=== PATIENT | female | born 1945 | race Caucasian/White ===

== ENCOUNTER 2016-08-21 05:55 | Inpatient (IN) | payer MEDICARE, OTHER ==
--- NOTE | ~2016-08-21 | CR151 ---
[facility] A Service of [facility] RADIOLOGY TEXT RESULTS PATIENT: MICHAEL SHAVER LOCATION: [facility] 305- : 43 UNIT #: [id number] AGE: [address]: Latosha Greene MD SEX: F ORDER DR: [id number] [facility] [address] [facility]. [place], [place] [address] [id number] I MR#: [id number] Acc #: [id number] NAME: MICHAEL SHAVER : 1945 SEX: F STUDY DATE/TIME: 08/21/2016 6:36 UNIT: [facility] ROOM: [facility] STUDY DESCRIPTION: CR Hip Min 2 Views Rt Attending Physician: Latosha Greene M.D. Ordering Physician: Kirt Mclain M.D. Primary Care Physician: Migue Adams M.D. MEDICAL IMAGING REPORT This report is preliminary unless electronic signature is present EXAM Pelvis and right hip 08/21 INDICATIONS Hip pain after fall last night at 09:00 p.m. FINDINGS AP pelvis was obtained in addition to a cross-table lateral view of the right hip. No comparison. Patient is osteopenic. There is a right femoral neck fracture with coxa vera. No dislocation is seen. There is osteoarthritis in both hips and there is osteopenia. 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 IMPRESSION Osteopenia and osteoarthritis. Acute right femoral neck fracture with coxa vera. No dislocation. Dictated by... Abraham Alexander Jr., M.D. THIS IS AN ELECTRONICALLY VERIFIED REPORT Abraham Alexander Jr., M.D. at 08/21/2016 10:00 AM KRISTI/rudolph TD: 08/21/2016 08:36 JOB #: [id number] MEDICAL IMAGING REPORT Page 1 of 1 COPY
--- NOTE | ~2016-08-21 | DS ---
Unit #: [id number] #: [id number] Patient: MICHAEL UGARTE [id number] [address] [address] [id number] I MR#: [id number] NAME: MICHAEL UGARTE ROOM: 47 Age: 71 Sex: F Admission Date: 08/21/2016 : 1945 Discharge Date: 08/24/2016 Attending Physician: Jillian Salazar M.D. Primary Care Physician: Migue Adams M.D. DISCHARGE SUMMARY PRINCIPAL DIAGNOSES 1. Right femoral neck fracture status post right bipolar. 2. Acute blood loss anemia postoperatively. Discharge hemoglobin 9.5. 3. Hypertension. 4. Osteoporosis. 5. Gastroesophageal reflux disease. 6. Seizure disorder. 7. Hyperlipidemia. CONSULTANTS Dr. Aviles, Orthopaedic Surgery. PROCEDURES 1. Right hip cemented bipolar hemiarthroplasty on August 22, 2016. This occurred without complication. 2. Chest x-ray, on August 21, 2016, with right infrahilar atelectasis. 3. X-ray of right hip, on August 21, 2016, with osteopenia and osteoarthritis. Acute right femoral neck fracture noted. CLINICAL HISTORY AND HOSPITAL COURSE Ms. Ugarte is a nice, 71-year-old female who presents to the emergency department with right hip pain after a fall at home. Please refer to H and P for further details. X-ray of the right hip in the emergency department revealed a right femoral neck fracture and patient was subsequently admitted. Dr. Aviles was consulted and the patient subsequently underwent a right hip bipolar hemiarthroplasty. Postoperatively, the patient has done exceptionally well. She did have a mild drop in hemoglobin from 12.3 upon admission down to 9.5. However, she is otherwise tolerating Lovenox well and has appropriate range of motion. No evidence of GI bleed. Hemoglobin can be followed up at rehab. The patient has otherwise remained stable. Blood pressure was mildly in control and medications were adjusted per Cardiology. She will be discharged to rehab today. DISCHARGE CONDITION Stable. DISCHARGE STATUS Discharged to rehab. DISCHARGE MEDICATIONS 1. Tylenol 650 mg p.o. daily p.r.n. for pain. 2. Lovenox 40 mg subcutaneously q.24 hours at 9 a.m. to stop after dose Unit #: [id number] #: [id number] Patient: MICHAEL UGARTE given on September 05, 2016. 3. Phenobarbital 64.8 mg p.o. b.i.d. 4. Norvasc 10 mg daily. 5. Bisacodyl 5 mg p.o. b.i.d. p.r.n. constipation. 6. Senokot S one tablet b.i.d. 7. Pravastatin 80 mg at bedtime. 8. Cozaar 100 mg daily. 9. Lortab 7.5/325 mg one tablet p.o. q.4 hours p.r.n. for pain. 10. Pantoprazole 40 mg daily. 11. Os-Dominick 500 mg plus D one b.i.d. DISCHARGE INSTRUCTIONS The patient was instructed to increase her activity as tolerated. She is weightbearing as tolerated on the right leg. She can follow a Heart Healthy diet. FOLLOWUP The patient will follow up with Dr. Aviles in two weeks. The patient should follow up with Dr. Adams upon discharge from rehab. Dictated by... Jillian Salazar M.D. DESTINY/wilber TD: 08/24/2016 09:43 JOB #: [id number] DISCHARGE SUMMARY Page 1 of 1 X Jillian Salazar MD DISCHARGE SUMMARY
--- NOTE | ~2016-08-21 | OR ---
Unit #: [id number] #: [id number] Patient: MICHAEL UGARTE [id number] [address] [address] [id number] I MR#: [id number] NAME: MICHAEL UGARTE ROOM: 472 Date of Procedure: 08/22/2016 Admission Date: 08/21/2016 Surgeon: Vinicius Aviles M.D. : 1945 Attending Physician: Latosha Greene M.D. Primary Care Physician: Migue Adams M.D. OPERATIVE REPORT PREOPERATIVE DIAGNOSIS Right closed displaced femoral neck fracture. POSTOPERATIVE DIAGNOSIS Right closed displaced femoral neck fracture. PROCEDURE PERFORMED Right hip cemented bipolar hemiarthroplasty. NET SOFTWARE ARCHITECT None. ANESTHESIA General with LMA. COMPLICATIONS None. SPECIMENS None. DRAINS None. SURGICAL IMPLANTS 1. Vesna bipolar hip hemiarthroplasty system, size 11 femoral Advocate stem. 2. 43 mm outer diameter bipolar shell with a +3.5 mm neck length. 3. Palacos R+G cement. INDICATION FOR PROCEDURE Ms. Ugarte is a 71-year-old female, who had tripped and fallen at home injuring her right hip. She was noted to have a displaced right femoral neck fracture. It was felt that the patient would benefit from bipolar hemiarthroplasty. Risks, benefits, and alternatives of the surgery were discussed with the patient and informed consent was obtained. Risks include, but not limited to, infection, bleeding, nerve injury, blood clots, risks associated with anesthesia, need for further surgery, dislocation, persistent pain, and possibly . DESCRIPTION OF PROCEDURE On 08/22/2016, the patient was seen in the preoperative holding area, Unit #: [id number] #: [id number] Patient: MICHAEL UGARTE where her surgical site was marked. Preoperative antibiotics were received. H and P and consent updated. The patient was taken to the operating room and provided general anesthesia. She was carefully moved to the left lateral decubitus position with the right hip toward the ceiling. All bony prominences were well padded. Right hip was then prepped and draped in typical sterile fashion. Time-out performed confirming the correct surgical site and procedure. A standard posterior approach to the hip was performed. Incision was taken down through the skin and subcutaneous tissues. IT band and fascia were carefully split. Retractors were placed. Hip was internally rotated. Short external rotators were released off the femur and a T-capsulotomy was performed. The two leaflets of the capsule were tagged with #2 Ethibond suture. The fracture site was identified. Retractors placed around it. Femoral neck cut made roughly a fingerbreadth above the lesser trochanter. At this point, the femoral head was removed from the acetabulum. It was measured on the back table at 43 mm. Trial shells were placed and noted to be stable with 43 mm. Focus was now placed on the femur. A box osteotome, followed by canal finder, followed by a lateral reamer were used. Sequential broaching was taken up to 11 mm. Neutral ball was placed and the hip was reduced. It was noted to be stable. Leg lengths appropriate. Hip was then dislocated again. Canal was prepared for cement. Restrictor placed. Cement was mixed on the back table and injected into the canal of the femur once it was ready. It was packed into the canal followed by placement of the prosthesis. Excess cement was removed around the stem. After approximately 12 minutes, the cement had hardened. A neutral trial head was placed. Again, the hip was reduced. It was felt that increasing the length to a +3.5 mm would aid in stability and restore leg length. The final bipolar system was put together and placed on the stem. It was malleted down and noted to be stable. The hip was again reduced. It was taken through full range of motion and noted to be stable. The remainder of 3 L normal saline was pulsed through the wound. Betadine solution was poured into the wound and suctioned out and irrigated out as well. At this point, the capsule was repaired with #2 Ethibond and 0 Vicryl suture. IT band and fascia were repaired in a similar fashion followed by 2-0 Vicryl for subcutaneous tissues and yareli for skin. Xeroform, 4x4s, ABD pad, and tape were placed. Abduction pillow was placed. The patient was subsequently awakened from general anesthesia in stable condition and taken to PACU postoperatively. POSTOPERATIVE PLAN The patient will be returned to the hospital room. She will be on 24-hour antibiotic protocol. She will be weightbearing as tolerated with posterior hip precautions of the right lower extremity. She will be on 2 weeks of Lovenox for DVT prophylaxis. She will have SHIRLEY hose and SCDs. No complications were encountered during the surgical procedure. Dictated by... Shawna Wong/debby TD: 08/23/2016 00:12 JOB #: [id number] Unit #: [id number] #: [id number] Patient: MICHAEL UGARTE OPERATIVE REPORT Page 1 of 1 X X PROCEDURE OPERATIVE NOTE
--- NOTE | ~2016-08-21 | CR72 ---
[facility] A Service of [facility] & [facility] RADIOLOGY TEXT RESULTS PATIENT: MICHAEL SHAVER LOCATION: [facility] 305- : 43 UNIT #: [id number] AGE: [address]: Latosha Greene MD SEX: F ORDER DR: [id number] [facility] [address] [facility] [place], [place] [address] [id number] I MR#: [id number] Acc #: [id number] NAME: MICHAEL SHAVER : 1945 SEX: F STUDY DATE/TIME: 08/21/2016 6:34 UNIT: A U ROOM: [facility] STUDY DESCRIPTION: CR Chest Single View Portable Attending Physician: Latosha Greene M.D. Ordering Physician: Kirt Mclain M.D. Primary Care Physician: Migue Adams M.D. MEDICAL IMAGING REPORT This report is preliminary unless electronic signature is present EXAM Portable chest 08/21 INDICATIONS Weakness. Patient had a fall last night. Preop exam for hip surgery. FINDINGS AP portable chest was obtained. No comparison. Heart size normal. There is some mild right infrahilar atelectasis or scarring. The lungs otherwise are clear. No pneumothorax. There is degenerative disease of the visualized spine and shoulders. There is atherosclerotic disease in the aorta. IMPRESSION Right infrahilar atelectasis or scarring. I have no basis for comparison. No other evidence for active disease. Dictated by... Abraham Alexander Jr., M.D. THIS IS AN ELECTRONICALLY VERIFIED REPORT Abraham Alexander Jr., M.D. at 08/21/2016 10:00 AM KRISTI/rudolph TD: 08/21/2016 08:31 JOB #: [id number] MEDICAL IMAGING REPORT Page 1 of 1 COPY
--- NOTE | ~2016-08-21 | CO ---
Unit #: [id number] #: [id number] Patient: SELMA UGARTE [id number] [address] [address] [id number] I MR#: [id number] NAME: SELMA UGARTE ROOM: 305 Age: 71 Sex: F Admission Date: 08/21/2016 : 1945 Attending Physician: Latosha Greene M.D. Primary Care Physician: Migue Adams M.D. Consultation Date: 08/21/2016 CONSULTATION REPORT REASON FOR CONSULTATION Right hip fracture. HISTORY OF PRESENT ILLNESS Selma Ugarte is a pleasant 71-year-old female who reports that she tripped with a mechanical fall onto her right hip last night around 9 p.m. resulting in a right hip fracture. She was seen at [facility] and noted to have a displaced right femoral neck fracture. She was transferred to [facility] for further care. The patient reports pain with motion in the hips. She describes as a dull ache. It is worse with motion, better with rest. No prior problems with her hip. Pain medication is helping. She denied any loss of consciousness or other contributing factors to the mechanical fall. PAST MEDICAL HISTORY 1. Hypertension. 2. History of seizures. 3. Dysphagia. 4. Heart arrhythmia. PAST SURGICAL HISTORY 1. Cholecystectomy. 2. Hysterectomy. 3. Bladder surgery. 4. Colonoscopy. SOCIAL HISTORY The patient does not smoke, drink alcohol or use drugs. She lives by herself but does have family members available for help. FAMILY HISTORY Noncontributory. ALLERGIES Sulfa, Lodine, penicillin, Rocephin. HOME MEDICATIONS 1. Phenobarbital. 2. Imdur. 3. Acetaminophen. 4. Losartan. 5. Pravastatin. 6. Amlodipine. 7. Pantoprazole. Unit #: [id number] #: [id number] Patient: SELMA UGARTE REVIEW OF SYSTEMS No other pertinent positives or negatives noted other than what is mentioned in the HPI. PHYSICAL EXAMINATION GENERAL APPEARANCE: The patient is alert and oriented for examination. No acute distress. VITAL SIGNS: Temperature 98.5 degrees Fahrenheit. Blood pressure 152/78. Pulse 96. Respiratory rate 18. HEENT: Head is normocephalic, atraumatic. Extraocular movements intact. Mucous membranes moist. CERVICAL SPINE: Midline with full range of motion. No appreciable JVD. LUNGS: Breathing nonlabored and chest rise symmetric. PULSE: Regular rate and rhythm. ABDOMEN: Soft, nontender, nondistended. No clubbing, cyanosis or edema of the extremities. No skin lesions. EXTREMITIES: Focused examination of the right lower extremity reveals the leg to be shortened and externally rotated. Positive log roll with pain in the groin region. Tenderness to palpation at the hip region. No skin lesions. (1) are soft. Foot warm and well perfused. Normal motor and sensory examination to the right lower extremity. DIAGNOSTIC STUDIES LABORATORY: BMP essentially normal with a potassium elevated at 5.2. INR 1.0. WBC count 6.7, hemoglobin 11.9, platelets 227. IMAGING: AP pelvis right hip x-ray reviewed. There is a displaced right femoral neck fracture noted. IMPRESSION A 71-year-old female with a right displaced femoral neck fracture. PLAN I discussed the radiographic findings with the patient and her family. I recommend right hip hemiarthroplasty. Risks and benefits and alternatives were discussed with the patient. Risks include but are not limited to infection, bleeding, nerve injury, blood clots, risk of anesthesia, need for further surgery, dislocation, leg length discrepancy and possibly . She would like to proceed with surgical intervention. We have her scheduled for tomorrow morning at 7:30. She is awaiting cardiac clearance. She does not appear to be having any current issues and I anticipate clearance. All of her questions were answered regarding treatment. Dictated by... Vinicius Aviles M.D. JOSE/jose TD: 08/21/2016 12:40 JOB #: [id number] Unit #: [id number] #: [id number] Patient: SELMA UGARTE CONSULTATION REPORT Page 1 of 1 X X CONSULTATION REPORT
--- NOTE | ~2016-08-21 | CO ---
Unit #: [id number] #: [id number] Patient: MICHAEL SHAVER [id number] [place] [address] [facility]. [place], [place] [address] [id number] I MR#: [id number] NAME: MICHAEL SHAVER ROOM: 305 Age: 71 Sex: F Admission Date: 08/21/2016 : 1945 Attending Physician: Latosha Greene M.D. Primary Care Physician: Migue Adams M.D. Consultation Date: 08/21/2016 CONSULTATION REPORT REASON FOR CONSULTATION Preop surgical clearance for right hip fracture. HISTORY OF PRESENT ILLNESS This is a pleasant 71-year-old elderly female, who states she has been seen by Dr. Schmitz in the past. She has a past medical history of hypertension, hyperlipidemia, seizure disorder, GERD, history of esophageal dilation by Dr. Pulido, and family history of coronary artery disease in her brother and her sister. The patient also reports she has been seen by Dr. Schmitz in the past for palpitations, but has no diagnosis of atrial fibrillation or SVT. There was also some question about coronary artery disease per the records; however, the patient denies. Currently, I have no records available for review. Apparently the patient was at home yesterday in the evening and moving around her house when she tripped over a baby cradle and fell. She is unable to get off before EMS was called. The patient was taken to [facility], where an x-ray did show a right femoral neck fracture and she was transferred to [facility] for further evaluation. She denies any complaints of chest pain. There is no evidence of congestive heart failure on exam. Her only complaint is occasional palpitations. At present, she is currently normal sinus rhythm on telemetry. EKG shows normal sinus rhythm, rate of 95 beats per minute, no acute ischemic change. Chest x-ray shows no active disease. At present, she is resting in bed. She has multiple family members present at bedside. Her only complaint is that of right hip pain. PAST MEDICAL HISTORY 1. Hypertension. 2. Hyperlipidemia. 3. Seizure disorder. 4. GERD. 5. History of esophageal dilation. 6. Questionable CAD history; however, I have no records to review and the patient denies. 7. Recent bright red bleeding per rectum. The patient says she is scheduled for colonoscopy with Dr. Pulido in August. 8. Nonsmoker. PAST SURGICAL HISTORY 1. Cholecystectomy. 2. Hysterectomy. 3. Bladder surgery. 4. Colonoscopy. Unit #: [id number] #: [id number] Patient: MICHAEL SHAVER SOCIAL HISTORY Lifelong nonsmoker. Denies illicit drugs or alcohol. She lives alone. Has multiple family members that check on her routinely. FAMILY HISTORY She has a brother and sister with coronary artery disease, and MIs in their 60s and 70s. ALLERGIES Sulfa, Lodine, penicillin, and Rocephin. HOME MEDICATIONS 1. Phenobarbital 64.8 mg p.o. b.i.d. 2. Imdur ER 30 mg p.o. daily. 3. Arthritis pain medicine 650 p.o. daily. 4. Losartan 100 mg p.o. daily. 5. Pravastatin 80 mg p.o. q.h.s. 6. Amlodipine 5 mg p.o. daily. 7. Pantoprazole 40 mg p.o. daily. REVIEW OF SYSTEMS Negative except for what was stated above in the HPI. PHYSICAL EXAMINATION VITAL SIGNS: Temperature 98.4, respiratory rate 18, pulse 91, and blood pressure 134/71. GENERAL: This is an elderly female, who is resting in bed. Family is present at bedside. Currently in no acute distress. HEENT: Head is atraumatic and normocephalic. Mucous membranes are moist. HEART: S1 and S2. Regular rate and rhythm. No murmurs, gallops, or rubs. LUNGS: Clear to auscultation. No rales, rhonchi, or wheezing. NECK: Trachea in midline. No thyromegaly. No JVD. No carotid bruits. ABDOMEN: Soft, nontender, and nondistended. EXTREMITIES: Pulses are palpable. No clubbing, cyanosis, or edema. Complaint of right hip pain. NEUROLOGIC: The patient is awake, alert, and oriented x3. She is able to answer questions. She follows commands without difficulty. Moves all extremities except for limited movement on the right secondary to hip fracture. DIAGNOSTIC STUDIES LABORATORY STUDIES: Sodium 140, potassium 5.2, chloride 104, CO2 of 28, BUN 8, creatinine 0.9, and glucose 120. Hemoglobin 11.9, hematocrit 35.5, WBC 6.7, platelet count 227. IMAGING STUDIES: Imaging of the hip shows acute right femoral neck fracture. Chest x-ray shows right infrahilar atelectasis, but no active disease. CARDIAC STUDIES: EKG shows normal sinus rhythm, 95 beats per minute, QTc interval of 419 milliseconds, no acute ischemic changes noted. ASSESSMENT 1. Acute right hip fracture status post fall. 2. Hypertension. 3. Hyperlipidemia. Unit #: [id number] #: [id number] Patient: MICHAEL SHAVER 4. History of seizure disorder. 5. History of esophageal stricture. 6. Recent episode of bright red bleeding per rectum, which is now resolved. The patient is scheduled for upcoming colonoscopy with Dr. Pulido in August. 7. History of reported palpitations. 8. Questionable history of coronary artery disease; however, there are no records available for review and the patient denies. PLAN Dr. Gee has seen and evaluated the patient. There are no signs and symptoms of angina or congestive heart failure on examination. We will check 2D echocardiogram to assess LV systolic function prior to proceeding with cardiac procedure in the a.m. This has been ordered and is currently pending. Cardiac examination is overall benign. Dr. Gee as long as the echo is okay believes she is okay to undergo surgery at acceptable surgical risk. We will follow postoperatively. Thank you for asking us to see this pleasant patient. We appreciate the consult. Dictated by... Yvonne Preston A.P.R.N. for S. Rito Gee M.D. TOM/debby TD: 08/22/2016 03:07 JOB #: [id number] CONSULTATION REPORT Page 1 of 1 X Yvonne Preston APRN CONSULTATION REPORT
--- NOTE | ~2016-08-21 | CR206 ---
[facility] A Service of [facility] RADIOLOGY TEXT RESULTS PATIENT: MICHAEL SHAVER LOCATION: [place] [address]- : 43 UNIT #: [id number] AGE: [address]: Jillian Salazar MD SEX: F ORDER DR: [id number] [facility] [address]. [place], [place] [address] [id number] I MR#: [id number] Acc #: [id number] NAME: MICHAEL SHAVER : 1945 SEX: F STUDY DATE/TIME: 08/22/2016 11:20 UNIT: [facility] ROOM: [facility] STUDY DESCRIPTION: CR Pelvis 1 or 2 Views Attending Physician: Latosha Greene M.D. Ordering Physician: Vinicius Aviles M.D. Primary Care Physician: Migue Adams M.D. MEDICAL IMAGING REPORT This report is preliminary unless electronic signature is present EXAM Single view right hip INDICATIONS Initial exam following hip surgery. COMPARISON STUDIES Comparison with yesterday. FINDINGS There has been interval placement of a right hip arthroplasty. Alignment appears anatomic. No other change. IMPRESSION Postoperative changes of the right hip. Dictated by... Greg Grimes M.D. THIS IS AN ELECTRONICALLY VERIFIED REPORT Greg Grimes M.D. at 08/23/2016 4:34 PM ARS/pcl TD: 08/22/2016 13:41 JOB #: [id number] MEDICAL IMAGING REPORT Page 1 of 1 COPY
--- NOTE | ~2016-08-21 | HP ---
Unit #: [id number] #: [id number] Patient: MICHAEL SHAVER [id number] [address] [place], [place] [address] [id number] MR#: [id number] NAME: MICHAEL SHAVER ROOM: 305 Age: 71 Sex: F Admission Date: 08/21/2016 : 1945 Attending Physician: Latosha Greene M.D. Primary Care Physician: Migue Adams M.D. HISTORY AND PHYSICAL CHIEF COMPLAINT Right hip fracture. HISTORY OF PRESENT ILLNESS Patient is a 71-year-old, female with a history of hypertension, seizure disorder, some GERD, and some questionable heart disease under the care of Dr. Schmitz who basically had a mechanical fall and fell, had sustained a right hip fracture and was transferred from [facility] for evaluation and surgical management. Patient's foot got caught on the crib leg and she tripped with a fall and fell. She describes the pain as 5-6/10 in severity, relieved with medication. She denies any chest pain, headache, or shortness of breath. Denied any palpitations prior to the fall. Denied any lightheadedness. She does have difficulty walking, which is attributable to her arthritis. REVIEW OF SYSTEMS Complete 10-point review of systems has been done and pertinent positives are noted above. PAST MEDICAL HISTORY As state above, diverticulitis, arthritis, hypertension, hyperlipidemia, and GERD. PAST SURGICAL HISTORY She has had a bladder repair, esophageal dilatation happened two years ago, gallbladder surgery, and hysterectomy. ALLERGIES Sulfa antibiotics, niacin, etodolac, ceftriaxone, rofecoxib from Vioxx. MEDICATIONS 1. Phenobarbital 64.8 mg p.o. twice daily. 2. Imdur ER 30 mg p.o. every day. 3. Arthritis/acetaminophen 650 mg p.o. every day. 4. Losartan 100 mg p.o. every day. 5. Pravastatin sodium 80 mg p.o. at bedtime. 6. Amlodipine 5 mg p.o. at supper. 7. Protonix 40 mg p.o. every morning. SOCIAL HISTORY No tobacco use, alcohol use, or illicit drug use. PHYSICAL EXAMINATION Unit #: [id number] #: [id number] Patient: MICHAEL SHAVER GENERAL APPEARANCE: On examination, she was comfortable and not in distress. VITAL SIGNS: Blood pressure 152/78, pulse 96, respiratory rate 18, and temperature 98.5. HEENT: Pupils were equal and react to light and accommodation. NECK: Supple without thyromegaly. CHEST: Decreased breath sounds at lung bases posteriorly. HEART: First and second hearts. ABDOMEN: Full. Moved with respirations. No palpable organomegaly. EXTREMITIES: Right leg length discrepancy noted. Right leg externally rotated. PSYCHIATRIC: Did not seem to respond to external stimuli. DIAGNOSTIC STUDIES LABORATORY: She had chemistries with glucose of 120; BUN and creatinine 8 and 0.9; sodium and potassium 140 and 5.2; AST and ALT 24 and 18 with alkaline phos of 111. She had CBC: WBC 6.7 and hemoglobin and hematocrit 11.9 and 35.5 with platelet count of 227, neutrophils 81.2, lymphocytes of . ASSESSMENT AND PLAN 1. Right hip fracture. Ortho has been consulted. IV morphine for pain. 2. Hypertension. Continue all medications. 3. Seizure disorder. Continue phenobarbital. 4. Hyperlipidemia. Continue medications. 5. GERD. Continue Protonix 40 mg p.o. every day. 6. Code status is a full code. Disposition to be determined after surgical management. For preop clearance, she gives me a history that suggest that maybe Dr. Schmitz was working her up or evaluating her up for possible sick sinus. We will have him consulted prior to surgery for preop cardiac clearance. 7. 1. Dictated by Shawna Harmon/weston TD: 08/21/2016 12:12 JOB #: [id number] HISTORY AND PHYSICAL Page 1 of 1 X Latosha Greene MD HISTORY AND PHYSICAL
--- NOTE | ~2016-08-21 | EKG ---
PATIENT: MICHAEL SHAVER UNIT #: [id number] Ventricular Rate: 95 BPM Atrial Rate: 95 BPM P-R Interval: 146 ms QRS Duration: 70 ms Q-T Interval: 334 ms QTC Calculation(Bezet): 419 ms P [place]: 39 degrees Calculated R [place]: -25 degrees Calculated T [place]: 42 degrees Diagnosis Line: Normal sinus rhythm Diagnosis Line: Normal ECG Diagnosis Line: No previous ECGs available Diagnosis Line: Confirmed by VINAY GLEZ MD ([id number]) on 08/26/2016 Diagnosis Line: 11:45:09 AM INTERPRETING MD: AMARIS FRANK
[~2016-08-21 05:55] MED LIST: AMLODIPINE BESYL5 MG PO; ARTHRITIS PAIN650 M2 PO; IMDUR-ER30 M1 PO; LOSARTAN POTAS100 MG PO; LOSARTAN POTASS50 MG PO; PANTOPRAZOLE SO40 MG PO; PHENOBARBITAL60 MG PO; PRAVASTATIN SOD40 MG PO; ZOCOR20 MG PO
[2016-08-21 08:10] LABS: BASOPHIL% 0.1 % (0-2.5); HEMATOCRIT 35.5 % (35.0-45.0); HEMOGLOBIN 11.9 gm/dL (12.0-16.0); LYMPHOCYTE# 0.4 X10e3 (1.0-3.5); LYMPHOCYTE% 5.7 % (17.0-45.0); MEAN CELL VOLUME 97.4 FL (83-96); MEAN CORPUSCULAR HEMOGLOBIN 32.6 PG (28-34); MEAN CORPUSCULAR HGB CONC 33.4 g/dL (30-36); MEAN PLATELET VOLUME 8.2 FL (6.5-11.5); MONOCYTE# 0.9 X10e3 (0-1.0); NEUTROPHIL# 5.5 X10e3 (1.5-7.1); NEUTROPHIL% 81.2 % (40-75); PLATELET COUNT 227 X10e3 (140-420); RED BLOOD COUNT 3.65 X10e (3.90-5.30); RED CELL DISTRIBUTION WIDTH 14.1 % (11.0-15.5); WHITE BLOOD COUNT 6.7 X10e3 (4.0-10.5)
[2016-08-21 08:16] LABS: DIFF IND NO
[2016-08-21 08:21] LABS: PROTHROMBIN TIME (PATIENT) 10.2 SECONDS (9.6-11.5)
[2016-08-21 08:46] LABS: BILIRUBIN,TOTAL 0.5 mg/dL (0.2-2.0); BUN/CREATININE RATIO 8.88; CALCIUM SERUM 9.5 mg/dL (8.4-10.2); CREATININE SERUM 0.9 mg/dL (0.6-1.4); GLOM FILT RATE Estimated 63.5 mL/min (>60); POTASSIUM 5.2 mmol/L (3.5-5.1); PROTEIN TOTAL SERUM 6.5 g/dL (6.0-8.3)
[2016-08-22 05:52] LABS: HEMATOCRIT 36.7 % (35.0-45.0); HEMOGLOBIN 12.3 gm/dL (12.0-16.0); MEAN CELL VOLUME 97.4 FL (83-96); MEAN CORPUSCULAR HEMOGLOBIN 32.6 PG (28-34); MEAN CORPUSCULAR HGB CONC 33.4 g/dL (30-36); MEAN PLATELET VOLUME 8.7 FL (6.5-11.5); RED BLOOD COUNT 3.76 X10e (3.90-5.30); RED CELL DISTRIBUTION WIDTH 13.8 % (11.0-15.5); WHITE BLOOD COUNT 7.7 X10e3 (4.0-10.5)
[2016-08-22 06:44] LABS: CALCIUM SERUM 8.9 mg/dL (8.4-10.2); GLOM FILT RATE Estimated 55.9 mL/min (>60); POTASSIUM 4.9 mmol/L (3.5-5.1)
[2016-08-23 03:48] LABS: HEMATOCRIT 30.1 % (35.0-45.0); LYMPHOCYTE# 0.7 X10e3 (1.0-3.5); LYMPHOCYTE% 10.7 % (17.0-45.0); MEAN CELL VOLUME 97.3 FL (83-96); MEAN CORPUSCULAR HGB CONC 33.9 g/dL (30-36); MEAN PLATELET VOLUME 8.7 FL (6.5-11.5); MONOCYTE% 16.2 % (3.0-12.0); NEUTROPHIL# 4.5 X10e3 (1.5-7.1); NEUTROPHIL% 73.1 % (40-75); PLATELET COUNT 160 X10e3 (140-420); RED BLOOD COUNT 3.09 X10e (3.90-5.30); RED CELL DISTRIBUTION WIDTH 13.5 % (11.0-15.5); WHITE BLOOD COUNT 6.2 X10e3 (4.0-10.5)
[2016-08-23 04:02] LABS: DIFF IND NO; HEMOGLOBIN 10.2 gm/dL (12.0-16.0)
[2016-08-23 04:17] LABS: GLOM FILT RATE Estimated 55.9 mL/min (>60)
[2016-08-24 03:22] LABS: BASOPHIL% 0.3 % (0-2.5); HEMATOCRIT 28.1 % (35.0-45.0); HEMOGLOBIN 9.5 gm/dL (12.0-16.0); LYMPHOCYTE# 0.7 X10e3 (1.0-3.5); LYMPHOCYTE% 11.5 % (17.0-45.0); MEAN CELL VOLUME 96.7 FL (83-96); MEAN CORPUSCULAR HEMOGLOBIN 32.7 PG (28-34); MEAN CORPUSCULAR HGB CONC 33.8 g/dL (30-36); MEAN PLATELET VOLUME 8.1 FL (6.5-11.5); MONOCYTE# 0.9 X10e3 (0-1.0); MONOCYTE% 16.1 % (3.0-12.0); NEUTROPHIL# 4.1 X10e3 (1.5-7.1); NEUTROPHIL% 72.1 % (40-75); PLATELET COUNT 171 X10e3 (140-420); RED CELL DISTRIBUTION WIDTH 13.5 % (11.0-15.5); WHITE BLOOD COUNT 5.6 X10e3 (4.0-10.5)
[2016-08-24 03:23] LABS: DIFF IND NO
[2016-08-24 04:02] LABS: BUN/CREATININE RATIO 17.77; CALCIUM SERUM 8.2 mg/dL (8.4-10.2); CREATININE SERUM 0.9 mg/dL (0.6-1.4); GLOM FILT RATE Estimated 63.5 mL/min (>60); POTASSIUM 4.8 mmol/L (3.5-5.1)
[2016-12-24] MEDS ORDERED: CLINDAMYCIN HC300 MG PO (08:44)
[2016-12-24] MEDS ORDERED: VIT E PO (08:45)
[2016-12-24] MEDS ORDERED: ARTHRITIS PAIN650 M3 PO (08:45)
[2016-12-24] MEDS ORDERED: VITAMIN D400 UNI2 PO (08:46)
[2016-12-24] MEDS ORDERED: VITAMIN C500 M1 PO (08:46)
== END 2016-08-24 15:03 | DRG 470 ==
LOC: C3A PCU 05:55 → C4C 08-22 13:25
PROVIDERS: Family Medicine; Internal Medicine; Orthopaedic Surgery
PROC: B246ZZZ Ultrasonography of Right and Left Heart (ICD-10-PCS; 2016-08-21)
PROC: 0SRR019 Replacement of Right Hip Joint, Femoral Surface with Metal Synthetic Substitute, Cemented, Open Approach (ICD-10-PCS; principal; 2016-08-22 07:30)
DX: S72.001A Fracture of unspecified part of neck of right femur, initial encounter for closed fracture (principal); G40.909 Epilepsy, unspecified, not intractable, without status epilepticus; I10 Essential (primary) hypertension; D62 Acute posthemorrhagic anemia; K21.9 Gastro-esophageal reflux disease without esophagitis; E78.5 Hyperlipidemia, unspecified; M81.0 Age-related osteoporosis without current pathological fracture; W01.0XXA Fall on same level from slipping, tripping and stumbling without subsequent striking against object, initial encounter; Z01.810 Encounter for preprocedural cardiovascular examination; Y92.009 Unspecified place in unspecified non-institutional (private) residence as the place of occurrence of the external cause; Z79.899 Other long term (current) drug therapy; Z82.49 Family history of ischemic heart disease and other diseases of the circulatory system; Z88.0 Allergy status to penicillin; Z88.2 Allergy status to sulfonamides; Z88.1 Allergy status to other antibiotic agents
CPT/HCPCS: 71010; 72170; 73502; 80048; 80053; 85025; 85027; 85610; 93005; 93306; 97110; 97116; 97161; 97166; 97530; 97535; C1776; G8978-GP; G8979-GP; G8980-GP; G8987-GO; G8988-GO; J1100; J1650; J1885; J2270; J2765; J3370

== ENCOUNTER → 2016-12-14 | Outpatient (CLI) | payer MEDICARE, OTHER ==
[~2016-12-14] MED LIST changes: +ARTHRITIS PAIN650 M3 PO; +CLINDAMYCIN HC300 MG PO; +VIT E PO; +VITAMIN C500 M1 PO; +VITAMIN D400 UNI2 PO
--- NOTE | ~2016-12-14 | MY29 ---
[facility] A Service of [facility] & [facility] RADIOLOGY TEXT RESULTS PATIENT: MICHAEL SHAVER LOCATION: [facility] : 41 UNIT #: [id number] AGE: [address]: Migue Adams MD SEX: F ORDER DR: [id number] [facility] [address]. [place], [place] [address] [id number] O MR#: [id number] Acc #: [id number] NAME: MICHAEL SHAVER : 1945 SEX: F STUDY DATE/TIME: 12/14/2016 11:22 UNIT: [facility] ROOM: STUDY DESCRIPTION: MY DENI SCREENING W/ CAD BILAT Attending Physician: Migue Adams M.D. Ordering Physician: Migue Adams M.D. Primary Care Physician: Migue Adams M.D. MEDICAL IMAGING REPORT This report is preliminary unless electronic signature is present EXAM Digital screening mammogram 12/14/2016 HISTORY 71-year-old woman annual screen. COMPARISON Mammograms date to 05/01/2005 with most recent 12/09/2015. FINDINGS Digital imaging of each breast was completed utilizing a two-view examination of each breast in craniocaudal and mediolateral-oblique projections. Review and interpretation of digital mammograms include a second review in conjunction with FDA-approved CAD device. There is a normal parenchymal presentation bilaterally consistent with the patient's age. There are no breast masses imaged and no parenchymal asymmetry is visualized. There are no suspicious microcalcifications and I see no focal architectural disturbance. IMPRESSION Negative screening digital mammogram. One-year followup recommended. ADDENDUM Breast parenchyma is fatty replaced. Patients over the age of 40 are entered into a reminder system with target due date for the next mammogram. A result letter will also be sent to the patient. BIRADS: 1 Negative [facility] A Service of [facility] & [facility] RADIOLOGY TEXT RESULTS PATIENT: MICHAEL SHAVER LOCATION: [facility] : 41 UNIT #: [id number] AGE: [address]: Migue Adams MD SEX: F ORDER DR: Dictated by... Nando Limon M.D. THIS IS AN ELECTRONICALLY VERIFIED REPORT Nando Limon M.D. at 12/14/2016 2:44 PM SHANIA/andrea TD: 12/14/2016 14:23 JOB #: [id number] MEDICAL IMAGING REPORT Page 1 of 1 COPY
== END | disposition home or self-care (01) ==
LOC: CWCC 10:54
DX: Z12.31 Encounter for screening mammogram for malignant neoplasm of breast (principal); R92.8 Other abnormal and inconclusive findings on diagnostic imaging of breast
CPT/HCPCS: G0202

== ENCOUNTER → 2016-12-24 | Day surgery (SDC) | payer MEDICARE, OTHER ==
--- NOTE | ~2016-12-24 | OR ---
Unit #: [id number] #: [id number] Patient: MICHAEL SHAVER [id number] [address] [address] [id number] O MR#: [id number] NAME: MICHAEL SHAVER ROOM: Date of Procedure: 12/24/2016 Admission Date: 12/24/2016 Surgeon: Agustín Pulido M.D. : 1945 Attending Physician: Agustín Pulido M.D. Primary Care Physician: Migue Adams M.D. OPERATIVE REPORT PREOPERATIVE DIAGNOSES The patient has presented with a history of hematochezia as well as left and right lower quadrant abdominal pain. PROCEDURES PERFORMED Colonoscopy and polypectomy. POSTOPERATIVE DIAGNOSES 1. Single sessile polyp about 1.52 cm in size in the proximal sigmoid colon. This was removed using snare cautery polypectomy. 2. Rest of the examination up to cecum and terminal ileum was normal. No diverticula or hemorrhoids were noted. RECOMMENDATIONS 1. The patient will be followed up in the office in 3 months' time. 2. She should have a repeat colonoscopy in 5 years. SEDATION USED MAC. DESCRIPTION OF PROCEDURE Following detailed explanation of the potential risks and complications of a colonoscopy, namely perforation, bleeding, and complications related to sedation, the patient was brought to GI lab and laid in the left lateral decubitus position. A digital rectal examination was performed, which was normal. Lubricated tip of Olympus video colonoscope was inserted through the anus and advanced under direct vision. The scope was advanced past rectosigmoid into descending colon. A large sessile polyp was noted in the sigmoid colon. No diverticula were seen however. The scope tip was then navigated all the way up to cecum with visualization of the ileocecal valve and the appendiceal orifice. Preparation was excellent with good visualization and photodocumentation was obtained. Last few inches of the terminal ileum were also visualized after intubation of the ileocecal valve and appeared normal. Successive segments of the colonic mucosa were examined upon withdrawal and appeared unremarkable except for the polyp seen earlier. No diverticula or hemorrhoids were noted. The sigmoid polyp was then removed using snare cautery polypectomy. It was retrieved and sent for histology. Excellent hemostasis was achieved and photodocumentation was obtained. The scope was then withdrawn and the patient returned to the recovery area. She tolerated the procedure without any postprocedure complications. Unit #: [id number] #: [id number] Patient: MICHAEL SHAVER Dictated by..Shawna Waters/debby TD: 12/24/2016 12:05 JOB #: [id number] CC: Migue Adams M.D. OPERATIVE REPORT Page 1 of 1 X Agustín Pulido MD X PROCEDURE OPERATIVE NOTE
== END | disposition home or self-care (01) ==
LOC: COPS 07:53
DX: D12.5 Benign neoplasm of sigmoid colon (principal); K92.1 Melena; M19.90 Unspecified osteoarthritis, unspecified site; I10 Essential (primary) hypertension; Z90.49 Acquired absence of other specified parts of digestive tract; Z88.2 Allergy status to sulfonamides; Z90.710 Acquired absence of both cervix and uterus; Z87.19 Personal history of other diseases of the digestive system; Z91.040 Latex allergy status; Z86.69 Personal history of other diseases of the nervous system and sense organs
CPT/HCPCS: 88305